=== PATIENT | male | born 1955 | race African-American/Black ===

== ENCOUNTER 2020-09-25 09:18 | Emergency (ER) | payer OTHER ==
[~2020-09-25] VITALS: Ht 172.7 cm; Wt 62.1 kg
--- NOTE | 2020-09-25 09:25 | Emergency Room Report ---
History of Present Illness General Chief Complaint: Dyspnea/Respdistress Source: Patient, EMS Present Illness HPI Disclaimer: Please note that this report is being documented using [employer] technology. This can lead to erroneous entry secondary to incorrect interpretation by the dictating instrument. HPI: 65-year-old male history of COPD on 3 L nasal cannula baseline presents for hypoxia. The patient was driving with a portable oxygen tank which ran out. He pulled over called EMS complaining of shortness of breath. EMS found an 88% and placed on supplemental oxygen improved to 99%. Patient states he has plenty of oxygen at home as well as more travel bottles but today while he was running errands. Denies recent cough, congestion, fever, chills. Tested negative for COVID-19 last week. Denies any other symptoms or complaints at this time. Feels returned to his baseline. PMH: COPD PSH: Reviewed Allergies: Reviewed Social Hx: Regular tobacco use Allergies: Coded Allergies: No Known Allergies (Unverified , 09/25/20) COVID-19 Screening Contact w/high risk pt: No Experienced COVID-19 symptoms?: No COVID-19 Testing performed [employer]: No Review of Systems All Other Systems: negative except mentioned in HPI Physical Exam Vital Signs Date Time Temp Pulse Resp B/P (MAP) Pulse Ox O2 Delivery O2 Flow Rate FiO2 09/25/20 09:08 98.4 110 22 134/86 (102) 90 Room Air General: Awake and alert, no acute distress HEENT: NC/AT. EOMI. Cardiovascular: RRR. S1 and S2 normal. No murmur appreciated Resp: Normal work of breathing. 3 L nasal cannula. No cough, wheezing or crackles appreciated Skin: Intact. No abrasions, laceration or rash over the exposed skin MSK: Normal tone and bulk. Moving all extremities. No obvious deformity. Neuro: Awake and alert. Mentating appropriately. Medical Decision Making Diagnostic Impression: Primary Impression: Dyspnea ER Course This is 65-year-old male with oxygen dependent COPD presenting for hypoxia after running out of oxygen on his portable tank. Patient is returned to his baseline oxygen and denies shortness of breath or other symptoms at this time. Otherwise well-appearing. He has more oxygen at home. Will arrange transport by a mbulance who can provide supplemental oxygen. I do not see need for emergent labs or imaging at this time. No other complaints from patient. Stable for outpatient follow-up. Patient arranged for his own transportation home. He states the ambulance was taking too long. Stated he did need oxygen to get home and that he would do fine home till he got there. He says he has plenty of oxygen at home. Safely ambulated from the ER. Last Vital Signs Date Time Temp Pulse Resp B/P (MAP) Pulse Ox O2 Delivery O2 Flow Rate FiO2 09/25/20 09:08 98.4 110 22 134/86 (102) 90 Room Air Disposition: HOME, SELF-CARE Condition: Stable John Cruz MD Sep 25, 2020 09:25
[2020-09-25 09:46] VITALS: BP 134/86
--- NOTE | 2020-09-25 09:48 | NUR ---
ED Nurse Note:pt. is O2 dependent at home , he was outside and ran out of O2 in portable tank, he was seen by ER MD ,receiving O2 2L via N/C, he will be transfered home by ambulance
--- NOTE | 2020-09-25 10:00 | NUR ---
ED Nurse Note:pt. is ambulating with steady gait, speaking in full sentances, A/Ox4
[2020-09-25 11:10] VITALS: BP 134/86
--- NOTE | 2020-09-25 11:10 | NUR ---
ED Nurse Note: Pt cleared by health care Provider for discharge. DC instructions was given and explained to pt and verbalized understanding of teachings. All medical deviecs such as ID band removed. Pt is AAO x4, ambulatory and left with all personal belongings.
== END 2020-09-25 11:10 | disposition home or self-care (01) ==
LOC: EDBD 09:18 → EMR 09:32
DX: R06.00 Dyspnea, unspecified (principal); J44.9 Chronic obstructive pulmonary disease, unspecified; Z99.81 Dependence on supplemental oxygen
CPT/HCPCS: 99283